=== PATIENT | female | born 1930 | race Caucasian/White ===

== ENCOUNTER → 2016-11-14 | Outpatient (CLI) | payer MEDICARE, OTHER ==
[~2016-11-14] MED LIST: BYSTOLIC5 MG PO; CATAPRES 0.1MG0.1 MG PO; CEFDINIR300 MG PO; ELIQUIS2.5 MG PO; FIORICET TAB1 EA PO; K-DUR TAB 10 M10 MEQ PO; LASIX TAB 20 MG20 MG PO; LASIX20 MG PO; LEVAQUIN750 MG PO; NASONEX17 GM; NORVASC 5 MG TAB5 MG PO; PATADAY2.5 ML OU; PEPCID20 MG PO; PRESERVISION A1 EACH PO; PROVENTIL HFA 61 INH INH; REQUIP0.25 MG PO; SINGULAIR10 MG PO; TUMS/TITRALAC500 MG PO; ULTRAM50 MG PO; VITAMIN B-12500 MCG PO; VITAMIN D31000 UNIT PO; ZITHROMAX250 MG PO
== END ==
LOC: RAD 15:11
DX: R91.8 Other nonspecific abnormal finding of lung field (principal); E55.9 Vitamin D deficiency, unspecified; G25.81 Restless legs syndrome; G44.89 Other headache syndrome; G89.4 Chronic pain syndrome; H61.21 Impacted cerumen, right ear; I10 Essential (primary) hypertension; I27.82 Chronic pulmonary embolism; I50.32 Chronic diastolic (congestive) heart failure; I82.591 Chronic embolism and thrombosis of other specified deep vein of right lower extremity; J01.00 Acute maxillary sinusitis, unspecified; J15.8 Pneumonia due to other specified bacteria; J30.89 Other allergic rhinitis; J91.8 Pleural effusion in other conditions classified elsewhere; M13.861 Other specified arthritis, right knee; M13.862 Other specified arthritis, left knee; M15.8 Other polyosteoarthritis; M54.5 Low back pain; R09.02 Hypoxemia; R50.9 Fever, unspecified; R53.83 Other fatigue; R94.31 Abnormal electrocardiogram [ECG] [EKG]
CPT/HCPCS: 71020; 93005